=== PATIENT | female | born 1950 | race Caucasian/White ===

== ENCOUNTER → 2017-08-26 | Outpatient (CLI) | payer MEDICARE ==
[~2017-08-26] MED LIST: BENTYL10 M1 PO; HYDROCODONE-APA1 TA1 PO; KEFLEX 500MG.500 MG PO; LORTAB 5/3251 TAB PO; MEDROL 4MG. DOSE4 MG PO; NOMEDS *; NOMEDS XX; NORCO 325 MG-51 TAB PO; TORADOL10 MG PO; VICODIN 5/500 T1 TAB PO; ZOFRAN ODT4 MG PO
[2017-08-26 15:41] LABS: BUN 16 mg/dL (7-18)
[2017-08-26 15:43] LABS: GFR (ESTIMATED) 71 ML/MIN (59-)
--- NOTE | 2017-08-28 11:45 | RADIOLOGY REPORT PS360 ---
CT CHEST W/WO CONTRAST COMPARISON: Low dose CT scan of chest 05/20/2017 HISTORY: All of possible right apical lung mass TECHNIQUE: Multiaxial scans obtained from the thoracic inlet the hemidiaphragms. Precontrast scans were performed followed by repeat scans after injection of IV contrast. Sagittal coronal reformats were evaluated as well. FINDINGS: Again noted is somewhat irregular right apical mass which is stable and unchanged in size and overall appearance from the previous exam and likely represents postinflammatory parenchymal scarring there are small apical blebs bilaterally. Findings of centrilobular emphysema in both lung stoddard more prominent in the upper lobes. There Is a calcified granuloma left upper lobe. Cardiac size is normal. There is no pleural fluid. There is slight fullness of the left adrenal gland with a CT number of 10 and this likely is a cyst or adenoma IMPRESSION: Stable irregular right apical mass likely representing post inflammatory scarring. There is a strong smoking history consider a known follow-up CT scan in approximately 6 months to assure interval stability other findings as described
== END ==
LOC: LAB 15:18 → RAD 15:18
PROVIDERS: Family Medicine
DX: R91.8 Other nonspecific abnormal finding of lung field (principal)
CPT/HCPCS: Q9967